=== PATIENT | female | born 2000 | race Caucasian/White ===

== ENCOUNTER 2023-06-20 17:02 | Emergency (ER) | payer BC, SELFPAY ==
[2023-06-20 17:08] VITALS: BP 113/88
[2023-06-20 17:24] LABS: Urine Albumin Trace (Neg - Trace); Urine Bilirubin Negative (Negative); Urine Character Clear (Clear); Urine Color Yellow; Urine Glucose Negative (Negative); Urine Ketone Trace (Negative); Urine Leukocyte Negative (Negative); Urine Nitrite Negative (Negative); Urine Occult Blood Trace (Negative); Urine Specific Gravity 1.025 (<1.030); Urine Urobilinogen Negative (Neg - 1+)
[2023-06-20 17:26] LABS: % Basophils 0.6 % (0-2); % Eosinophils 8.4 % (0-6); % Immature Granulocytes 0.3 % (0-0.5); % Lymphocytes 25.7 % (20.5-51.1); % Monocytes 7.6 % (1.7-9.3); % Neutrophils 57.4 % (42.2-75.2); Absolute Eosinophils 0.6 10^3/uL (0-0.7); Absolute Lymphocytes 1.8 10^3/uL (1.2-3.4); Absolute Monocytes 0.5 10^3/uL (0.1-0.6); Absolute Neutrophils 4.1 10^3/uL (1.4-6.5); Hematocrit 39.7 % (37.0-47.0); Hemoglobin 13.9 g/dL (12.0-16.0); Mean Corpuscular Hgb 31.4 pg (27.0-31.0); Mean Corpuscular Volume 89.6 fL (81.0-99.0); Mean Platelet Volume 9.3 fL (7.4-10.4); Nucleated Red Blood Cells % 0 %; Platelet Count 248 10^3/uL (130-400); Red Blood Cell Count 4.43 10^6/uL (4.20-5.40); Red Cell Dist. Width 12.5 % (11.5-14.5); White Blood Cell Count 7.1 10^3/uL (4.8-10.8)
[2023-06-20 17:32] LABS: Urine Squamous Cell 26-30 /LPF (Few)
[2023-06-20 17:33] LABS: Urine Mucus Many
[2023-06-20 17:36] LABS: Urine Bacteria Few (Negative); Urine Hyaline Cast 0-2 /LPF (0-2); Urine Red Blood Cell 0-2 /HPF (0-2); Urine White Cell 0-2 /HPF (0-5)
[2023-06-20 17:38] LABS: HCG, Serum Qualitative Screen Negative
[2023-06-20 17:45] LABS: ALT (SGPT) 20 U/L (0-35); AST (SGOT) 25 U/L (14-36); Albumin 4.5 g/dl (3.5-5.0); Alkaline Phosphatase 52 U/L (38-126); Blood Urea Nitrogen 12 mg/dl (7-17); Calcium 9.3 mg/dl (8.4-10.2); Carbon Dioxide 23 mmol/L (22-30); Chloride 106 mmol/L (98-107); Glucose 89 mg/dl (70-99); Lipase 65 U/L (23-300); Potassium 4.3 mmol/L (3.5-5.1); Sodium 135 mmol/L (135-145); Total Bilirubin 0.7 mg/dl (0.2-1.3); Total Protein 7.3 g/dl (6.3-8.2); eGFR > 60.00
[2023-06-20 18:37] VITALS: BMI 20.9
[2023-06-20 18:44] VITALS: BP 115/66
--- NOTE | 2023-06-20 19:03 | ED.GENMED ---
Addendum entered and electronically signed by Viraj Galvez DO 06/20/23 23:25:
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
looks comfortable here clearly instructed to return to the ER for worsening symptoms
Original Note:
History of Present Illness
<Lesly Shields PA-C - Last Filed: 06/20/23 20:59>
General
Chief Complaint: Abdominal Symptoms
Source: patient
Exam Limitations: none
Time Seen by Provider: 06/20/23 18:16
Nursing documentation reviewed up to this point in time: agreed with
Travel History
Have you had any contact with someone who has COVID-19?: No
Do you have any symptoms of coronavirus? Fever > 100 degrees, chills, cough, shortness of breath, sore throat, loss of taste or smell, muscle aches, or headache?: No
History of Present Illness
History of Present Illness:
Patient is a 22-year-old female with history of celiac disease presenting for evaluation of abdominal pain. Pain started acutely about 4 days while she was lying in bed and has been intermittent since. At its most severe it is a 6 out of 10 in
severity described as a dull ache. Pain is located in the lower abdomen with occasional radiation around to the back. She endorses associated mild nausea. No association with eating or movement. No vomiting, diarrhea, fever, chills, urinary
symptoms. No abnormal vaginal discharge or bleeding. No recent viral illness. Her last bowel movement was yesterday and 'normal 'per patient. She has tried taking ibuprofen for pain which was minimally helpful. Her last menstrual period started
06/06/2023�she is not on any control.
She adheres to a strict gluten-free diet.
Past History
<Lesly Shields PA-C - Last Filed: 06/20/23 20:59>
Past History
ED Past Medical History: Asthma and Psychiatric
ED Past Surgical History: None
Social History
Tobacco: Non-smoker
Alcohol: None
Drug: None
Personal: Partner
Living: with family
Employment: Employed
Family History
Family History: Other
Phy Exam
<Lesly Shields PA-C - Last Filed: 06/20/23 20:59>
Physical Exam
Physical Exam:
General: Well appearing and non-toxic, vital signs reviewed�patient afebrile
HEENT: Atraumatic, normocephalic, pupils equal round reactive to light bilaterally protecting airway
Neck: appears supple, normal range of motion
CV: Regular rate and rhythm, heart sounds normal, no evidence of cyanosis
Resp: No evidence of respiratory distress, lungs clear to auscultation bilaterally, no accessory muscle use
Abd: Soft, mildly tender in lower abdomen without rebound or guarding, non-distended, no CVA tenderness, no tenderness at McBurney's point
Extremities: No deformities, no evidence of cyanosis or edema
Neuro: alert and oriented to person place time, speech normal, no focal motor deficit
Psych: Normal affect
Skin: Intact, no rashes
Course
<BERNABE Berg Last Filed: 06/20/23 20:59>
Orders/Labs/Results
Orders:
Orders
06/20/23 17:09
Test Result ONCE
06/20/23 17:17
CMP [Comprehensive Metabolic Panel] Urgent
Complete Blood Count/With Diff Urgent
HCG, Serum Qualitative Screen Urgent
Lipase Urgent
Urinalysis Reflex To Culture Urgent
Date Specimen was Collected: 06/20/23
Time Specimen was Collected: 17:09
Urine Microscopic Reflex Cult Urgent
06/20/23 19:29
Renal & Bladder US [US Renal With Bladder] Urgent
Comment:
Reason For Exam: back pain, lower abdominal pain
US Pelvis Only (non-obstetric) Urgent
Comment:
Reason For Exam: lower abdominal pain
Abnormal Lab Results
06/20/23
17:17
MCH 31.4 H pg
(27.0-31.0)
Eosinophils % 8.4 H %
(0-6)
Urine Ketones Trace A
(Negative)
Ur Occult Blood Reflex Trace A
(Negative)
Urine Bacteria (Reflex) Few A
(Negative)
06/20/23 17:17
06/20/23 17:17
Vital Signs
Initial and Last Documented VS:
Initial Vital Signs
Temp Pulse Resp BP Pulse Ox
97.7 F 94 17 113/88 99
06/20/23 17:08 06/20/23 17:08 06/20/23 17:08 06/20/23 17:08 06/20/23 17:08
Last Documented Vital Signs
Temp Pulse Resp BP Pulse Ox
97.7 F 88 16 120/95 100
06/20/23 17:08 06/20/23 22:53 06/20/23 18:44 06/20/23 22:53 06/20/23 18:44
<Viraj Galvez, DO - Last Filed: 06/20/23 23:08>
Orders/Labs/Results
Orders:
Orders
06/20/23 17:09
Test Result ONCE
06/20/23 17:17
CMP [Comprehensive Metabolic Panel] Urgent
Complete Blood Count/With Diff Urgent
HCG, Serum Qualitative Screen Urgent
Lipase Urgent
Urinalysis Reflex To Culture Urgent
Date Specimen was Collected: 06/20/23
Time Specimen was Collected: 17:09
Urine Microscopic Reflex Cult Urgent
06/20/23 19:29
Renal & Bladder US [US Renal With Bladder] Urgent
Comment:
Reason For Exam: back pain, lower abdominal pain
US Pelvis Only (non-obstetric) Urgent
Comment:
Reason For Exam: lower abdominal pain
Abnormal Lab Results
06/20/23
17:17
MCH 31.4 H pg
(27.0-31.0)
Eosinophils % 8.4 H %
(0-6)
Urine Ketones Trace A
(Negative)
Ur Occult Blood Reflex Trace A
(Negative)
Urine Bacteria (Reflex) Few A
(Negative)
06/20/23 17:17
06/20/23 17:17
Vital Signs
Initial and Last Documented VS:
Initial Vital Signs
Temp Pulse Resp BP Pulse Ox
97.7 F 94 17 113/88 99
06/20/23 17:08 06/20/23 17:08 06/20/23 17:08 06/20/23 17:08 06/20/23 17:08
Last Documented Vital Signs
Temp Pulse Resp BP Pulse Ox
97.7 F 88 16 120/95 100
06/20/23 17:08 06/20/23 22:53 06/20/23 18:44 06/20/23 22:53 06/20/23 18:44
<Lesly Shields PA-C - Last Filed: 06/20/23 20:59>
MDM/Problems Addressed
Differential Diagnosis Includes:
Mittelschmerz, enteritis, ovarian cyst, ovarian torsion, nephrolithiasis, cystitis, diverticulitis,
MDM/Problems Addressed:
Patient is a 22-year-old female presenting for evaluation of intermittent lower abdominal pain with occasional radiation to the back over the past 4 days. Mild nausea. No vomiting, fever, chills, anorexia. No urinary symptoms vaginal bleeding or
discharge. LMP 06/06/2023�on no control. Vital signs stable�afebrile. Physical exam as documented above�well-appearing on exam. Abdomen soft, nondistended mild diffuse tenderness in the abdomen most significant in lower quadrants without
rebound or guarding. No tenderness McBurney's point, no CVA tenderness. Will get basic labs, UA, check test.
Discussed CT scan versus ultrasound with patient. She had recent CT scan done at different hospital for separate complaint. To suspect possible ovarian pathology. Possible kidney stone. Will plan to get pelvic ultrasound and kidney ultrasound.
Will reassess. She does not want a thing for pain management at this time.
CBC without any clinically significant abnormalities. No elevation of white count. CMP without abnormalities. Lipase within normal range. hCG negative. UA shows no signs of infection. Ultrasound pending
Chronic conditions affecting care:
Celiac disease
<Lesly Shields PA-C - Last Filed: 06/20/23 20:59>
*Pulse Oximetry
Patient hypoxic: no
*Macaroni Maker Interpretation
Rate: Macaroni Maker- N/A
*Critical Care Note
Total Time (30-74mins, 75-104mins- exclusive of procedures): Not Applicable
<Viraj Galvez DO - Last Filed: 06/20/23 23:08>
Update Note
Update Note:
Update 11 PM labs noted urine noted ultrasound reports noted patient appears comfortable have her follow-up with [employer]
ED Attending Note
<Lesly Shields PA-C - Last Filed: 06/20/23 20:59>
-
Portions of this chart may have been created with voice recognition software.� Occasional wrong word or��sound alike� substitutions may have occurred due to the inherent limitations of voice recognition software.
<Viraj Galvez DO - Last Filed: 06/20/23 23:08>
ED Attending Note
Patient seen and examined by attending physician: Yes
I performed the substantive portion of visit, reviewed & personally made and approve the management plan that is documented in note by myself or JS.: Yes
ED Attending Note:
Seen with PA examined independently 22-year-old female history of celiac diagnosed as a child no recurrence been ordered strictly to free diet presents with sharp left lower abdominal pain into her flank no fever no nausea vomiting onset 4 days ago
she is midcycle no history of cysts, she is hCG negative white count is noted she looks well here minimal tenderness, no right lower abdominal tenderness, will check pelvic ultrasound and renal ultrasound serial abdominal exams
Discharge Plan
Departure
Patient Disposition: Home (Routine Discharge)
Date of Disposition: 06/20/23
Time of Disposition: 23:07
Patient with high blood pressure during this ER visit?: No
Condition: Good
Discharge Problem:
Pelvic pain
Prescriptions:
New
ibuprofen 600 mg tablet
600 mg PO Q6H PRN (Reason: Pain) Qty: 20 0RF
No Action
prednisone 20 MG tablet
20 mg PO DAILY 4 Days Qty: 4 0RF
Rx Instructions:
Take in the morning
azithromycin [Zithromax] 100 MG/5 ML suspension for reconstitution
250 mg PO DAILY 4 Days Qty: 60 0RF
prednisone 20 mg tablet
20 mg PO DAILY Qty: 11 0RF
Rx Instructions:
Take 40mg for 3 days, then 20mg for 3 days, then 10mg (1/2 tab) for 3 days.
Referrals:
Nora Irvin DO [Active] - Next open appointment
Axel Hassan MD [Family Provider] -
Activity Restrictions/Additional Instructions:
Drink plenty of fluids Tylenol or ibuprofen for pain follow-up with [employer] return to the ER for worsening symptoms
Interventions
Interventions:
*Risk Screen - Suicide Last Done: 06/20/23 18:41
*General Assessment Last Done: 06/20/23 18:40
*Neglect/Abuse Screening Last Done: 06/20/23 18:41
ED- Fall Risk Assessment Last Done: 06/20/23 18:41
*ED COVID-19 Vaccine History Last Done: 06/20/23 17:08
DE-Zvctok-Qhewhcdsoo Assessment Last Done: 06/20/23 18:41
[2023-06-20 22:53] VITALS: BP 120/95
[2023-06-20 23:27] VITALS: BP 120/95
== END 2023-06-20 23:28 | disposition home or self-care (01) ==
LOC: EMR 17:02
PROVIDERS: Emergency Medicine; EMERGENCY PHYSICIAN Emergency Medicine; FAMILY PHYSICIAN Family Medicine
DX: R10.2 Pelvic and perineal pain (principal); J45.909 Unspecified asthma, uncomplicated; K90.0 Celiac disease
CPT/HCPCS: 99284; 76770; 76856; 80053; 81003; 81015; 83690; 84703; 85025

== ENCOUNTER → 2023-06-30 08:55 | Outpatient (REF) | payer BC, SELFPAY | LOC: WDC 08:55 | PROVIDERS: ATTENDING PHYSICIAN Physician Assistant Medical | DX: N63.10 Unspecified lump in the right breast, unspecified quadrant (principal); N63.11 Unspecified lump in the right breast, upper outer quadrant | CPT/HCPCS: 76642 ==

== ENCOUNTER → 2024-01-07 12:51 | Outpatient (REF) | payer BC, SELFPAY | LOC: WDC 12:51 | PROVIDERS: ATTENDING PHYSICIAN Physician Assistant Medical | DX: I88.9 Nonspecific lymphadenitis, unspecified (principal) | CPT/HCPCS: 76641 ==